=== PATIENT | female | born 1990 | race Two or more races ===

== ENCOUNTER 2025-06-21 17:02 | Emergency (ER) | payer OTHER ==
[~2025-06-21] VITALS: Ht 157.5 cm; Wt 52.2 kg
[2025-06-21] MEDS ORDERED: TRANEXAMIC ACI650 MG PO (17:57)
[2025-06-21] MEDS ORDERED: 0.9 % SODIUM CHLORIDE 1,000 ML IV SCH (18:15)
[2025-06-21] MEDS ORDERED: TRAMADOL HCL 50 MG TABLET PO ONE (18:15)
[2025-06-21] MEDS ORDERED: ESTROGENS, CONJUGATED 25 MG VIAL IV ONE (18:15)
[2025-06-21 18:48] LABS: BASO % 0.4 % (0.1-1.2); EOS # 0.07 (0.04-0.54); EOS % 0.5 % (0.7-7.0); LYMPH # 0.84 (1.18-3.74); LYMPH % 6.2 % (19.3-53.1); MEAN PLATELET VOLUME 11.10 fl (9.4-12.4); MONO # 0.64 (0.24-0.82); MONO % 4.7 % (4.7-12.5); NEUT # 11.96 (1.56-6.13); NEUT % 87.9 % (34.0-71.1); RED CELL DISTRIBUTION WIDTH 13.5 % (11.6-14.4)
[2025-06-21 19:08] LABS: INR 1.02
[2025-06-21 19:13] LABS: ALT/SGPT 24.0 U/L (12-78); AST/SGOT 16.0 U/L (15-37); BILIRUBIN TOTAL 0.32 mg/dL (0.3-1.2); BUN CREA RATIO 20.0 (7.0-25.0); CREATININE SERUM 0.66 mg/dL (0.55-1.02); GFR 102.52; GLOBULINA 3.1 G/DL (2.4-3.5); GLUCOSE FASTING 93.0 mg/dL (65-100); OSMOLALITY SERUM 279.0 MOSM/KG (275-295)
[2025-06-21] MEDS ORDERED: NORETHINDRONE AC5 MG PO (19:54)
== END 2025-06-21 20:11 | disposition home or self-care (01) ==
LOC: ER 17:02
PROVIDERS: General Practice
DX: N93.9 Abnormal uterine and vaginal bleeding, unspecified (principal); Z91.013 Allergy to seafood